=== PATIENT | female | born 1980 | race Caucasian/White ===

== ENCOUNTER 2022-05-26 07:51 | Outpatient (CLI) | payer BC | END 2022-05-26 07:52 | disposition home or self-care (01) | LOC: CSHULT 07:51 | PROVIDERS: ATTEND Family Medicine | DX: R10.11 Right upper quadrant pain (principal); K76.0 Fatty (change of) liver, not elsewhere classified; K80.20 Calculus of gallbladder without cholecystitis without obstruction | CPT/HCPCS: 76700 ==